=== PATIENT | male | born 1945 | race African-American/Black ===

== ENCOUNTER 2021-11-19 19:41 | Inpatient (IN) | payer MEDICARE ==
[2021-11-19] MEDS ORDERED: NS 0.9% w/ 40 MEQ KCL 1,000 ML IV SCH (21:00)
[2021-11-19 21:03] LABS: Band 11 % (5-11); Hemoglobin 10.7 g/dL (14.0-18.0); Hypochromia SLIGHT = 6-15 cells (100X) (0-5/hpf); Lymphocytes 2 % (21-51); MDiff Complete? YES; Mean Corpuscular HGB CONC 34.3 g/dL (32.0-36.0); Mean Corpuscular Volume 69.8 fL (78.0-98.0); Mean Platelet Volume 5.9 fL (7.4-10.4); Microcytosis SLIGHT = 6-15 cells (100X) (0-5/hpf); Monocytes 28 % (0-10); Neutrophil 59 % (42-75); Platelet Count 40 thou/uL (130-400); Platelet Morphology Comment Appears Decreased; Red Blood Cell (RBC) Count 4.47 mill/uL (4.70-6.10); White Blood Cell (WBC) Count 29.6 thou/uL (4.8-10.8)
[2021-11-19 21:04] LABS: ALT (SGPT) 73 U/L (8-55); AST (SGOT) 178 U/L (5-34); Albumin 2.5 g/dL (3.4-4.8); Alkaline Phosphatase 223 U/L (40-110); Anion Gap 15 mmol/L (10-20); BUN (Urea Nitrogen) 55 mg/dL (8.4-25.7); Bilirubin, Total 2.9 mg/dL (0.2-1.2); Calc. Creatinine Clearance 0 mL/min (70-130); Calcium 6.7 mg/dL (7.8-10.44); Carbon Dioxide 17 mmol/L (23-31); Chloride 92 mmol/L (98-107); Globulin 2.3 g/dL (2.4-3.5); Glucose 66 mg/dL (83-110); Protein, Total 4.8 g/dL (5.8-8.1); Sodium 121 mmol/L (136-145)
[2021-11-19 21:17] LABS: Potassium 2.5 mmol/L (3.5-5.1)
[2021-11-19] MEDS ORDERED: Potassium Chloride 20 MEQ TAB PO SCH ×2 (22:00)
[2021-11-19] MEDS ORDERED: Dextrose 5% in Water 1,000 ML IV SCH (22:00)
[2021-11-19 22:01] LABS: ALT (SGPT) 75 U/L (8-55); AST (SGOT) 182 U/L (5-34); Albumin 2.6 g/dL (3.4-4.8); Alkaline Phosphatase 221 U/L (40-110); Anion Gap 16 mmol/L (10-20); BUN (Urea Nitrogen) 52 mg/dL (8.4-25.7); Band 6 % (5-11); Bilirubin, Total 2.9 mg/dL (0.2-1.2); Calc. Creatinine Clearance 0 mL/min (70-130); Calcium 7.1 mg/dL (7.8-10.44); Carbon Dioxide 16 mmol/L (23-31); Chloride 92 mmol/L (98-107); Globulin 2.8 g/dL (2.4-3.5); Glucose 62 mg/dL (83-110); Hemoglobin 10.9 g/dL (14.0-18.0); Hypochromia SLIGHT = 6-15 cells (100X) (0-5/hpf); Lymphocytes 2 % (21-51); MDiff Complete? YES; Mean Corpuscular HGB CONC 34.5 g/dL (32.0-36.0); Mean Corpuscular Hemoglobin 24.3 pg (27.0-31.0); Mean Corpuscular Volume 70.6 fL (78.0-98.0); Mean Platelet Volume 6.9 fL (7.4-10.4); Monocytes 30 % (0-10); Neutrophil 62 % (42-75); Platelet Count 30 thou/uL (130-400); Platelet Morphology Comment Appears Decreased; Protein, Total 5.4 g/dL (5.8-8.1); RBC Distribution Width 12.9 % (11.5-14.5); Red Blood Cell (RBC) Count 4.49 mill/uL (4.70-6.10); Sodium 121 mmol/L (136-145); White Blood Cell (WBC) Count 30.8 thou/uL (4.8-10.8)
[2021-11-19 22:06] LABS: Potassium 2.5 mmol/L (3.5-5.1)
[2021-11-19] MEDS ORDERED: Acetaminophen 325 MG TAB PO PRN (23:37)
[2021-11-19] MEDS ORDERED: Ondansetron PF 4 MG/2 ML Vial IVP PRN (23:37)
[2021-11-20] MEDS ORDERED: Meropenem 1 GM in Sodium Chloride 0.9% 100 ML IVPB SCH ×2 (00:30→06:45)
[2021-11-20] MEDS ORDERED: Potassium Chloride 20 MEQ TAB ONE (01:16)
[2021-11-20] MEDS ORDERED: Dextrose 5% in Water 1,000 ML IV SCH ×2 (01:20→11:45)
[2021-11-20] MEDS ORDERED: Potassium Chloride 40 MEQ in Sodium Chloride 0.9% 250 ML 250 ML IVPB SCH (02:00)
[2021-11-20] MEDS ORDERED: Potassium Chloride 20 MEQ TAB PO SCH ×3 (02:00→22:00)
[2021-11-20 04:29] LABS: Platelet Count 25 thou/uL (130-400)
[2021-11-20 04:42] LABS: Band 16 % (5-11); Hemoglobin 11.1 g/dL (14.0-18.0); Hypochromia SLIGHT = 6-15 cells (100X) (0-5/hpf); Lymphocytes 3 % (21-51); MDiff Complete? YES; Mean Corpuscular Hemoglobin 23.7 pg (27.0-31.0); Mean Corpuscular Volume 69.6 fL (78.0-98.0); Mean Platelet Volume 14.1 fL (7.4-10.4); Monocytes 17 % (0-10); Neutrophil 64 % (42-75); Platelet Morphology Comment Appears Decreased; RBC Distribution Width 13.1 % (11.5-14.5); Red Blood Cell (RBC) Count 4.68 mill/uL (4.70-6.10); White Blood Cell (WBC) Count 29.4 thou/uL (4.8-10.8)
[2021-11-20 08:19] VITALS: BMI 25.0
[2021-11-20 08:44] LABS: Lactic Acid 1.9 mmol/L (0.5-2.2)
[2021-11-20 10:43] LABS: AST (SGOT) 189 U/L (5-34); Albumin 2.3 g/dL (3.4-4.8); Alkaline Phosphatase 213 U/L (40-110); Anion Gap 18 mmol/L (10-20); BUN (Urea Nitrogen) 49 mg/dL (8.4-25.7); Bilirubin, Total 3.1 mg/dL (0.2-1.2); Calc. Creatinine Clearance 32 mL/min (70-130); Calcium 7.9 mg/dL (7.8-10.44); Carbon Dioxide 11 mmol/L (23-31); Chloride 103 mmol/L (98-107); Globulin 3.2 g/dL (2.4-3.5); Glucose 69 mg/dL (83-110); Potassium 4.2 mmol/L (3.5-5.1); Protein, Total 5.5 g/dL (5.8-8.1); Sodium 128 mmol/L (136-145)
[2021-11-20 12:20] LABS: ALT (SGPT) 94 U/L (8-55)
[2021-11-20] MEDS: Meropenem 1 GM in Sodium Chloride 0.9% 100 ML IVPB SCH (15:20)
[2021-11-20] MEDS: Dextrose 5% in Water 1,000 ML IV SCH (18:04)
[2021-11-20 21:55] LABS: Potassium 2.7 mmol/L (3.5-5.1)
[2021-11-21] MEDS ORDERED: Potassium Chloride 20 MEQ TAB PO SCH ×2 (00:05→10:45)
[2021-11-21] MEDS: Dextrose 5% in Water 1,000 ML IV SCH (02:04)
[2021-11-21] MEDS: Meropenem 1 GM in Sodium Chloride 0.9% 100 ML IVPB SCH ×2 (02:04→13:51)
[2021-11-21 09:24] LABS: ALT (SGPT) 104 U/L (8-55); AST (SGOT) 145 U/L (5-34); Albumin 2.6 g/dL (3.4-4.8); Alkaline Phosphatase 259 U/L (40-110); Anion Gap 11 mmol/L (10-20); BUN (Urea Nitrogen) 36 mg/dL (8.4-25.7); Bilirubin, Total 2.1 mg/dL (0.2-1.2); Calc. Creatinine Clearance 40 mL/min (70-130); Calcium 8.3 mg/dL (7.8-10.44); Carbon Dioxide 21 mmol/L (23-31); Chloride 98 mmol/L (98-107); Globulin 3.4 g/dL (2.4-3.5); Glucose 143 mg/dL (83-110); Magnesium 2.3 mg/dL (1.6-2.6); Potassium 3.4 mmol/L (3.5-5.1); Sodium 127 mmol/L (136-145)
[2021-11-21 10:57] LABS: Band 19 % (5-11); Hemoglobin 12.8 g/dL (14.0-18.0); Lymphocytes 5 % (21-51); MDiff Complete? YES; Mean Corpuscular HGB CONC 33.7 g/dL (32.0-36.0); Mean Corpuscular Hemoglobin 23.7 pg (27.0-31.0); Mean Corpuscular Volume 70.3 fL (78.0-98.0); Mean Platelet Volume 10.2 fL (7.4-10.4); Monocytes 1 % (0-10); Myelocyte 1 % (0-0); Neutrophil 74 % (42-75); Platelet Count 52 thou/uL (130-400); Platelet Morphology Comment Appears Decreased; RBC Distribution Width 13.3 % (11.5-14.5); Red Blood Cell (RBC) Count 5.39 mill/uL (4.70-6.10); White Blood Cell (WBC) Count 18.8 thou/uL (4.8-10.8)
[2021-11-21] MEDS ORDERED: Iopamidol 370 76% 50 ML VIAL FS ONE (11:13)
[2021-11-21] MEDS ORDERED: MEROPENEM 1 GM/50 ML 1 GM in Premix Bag 1 BAG IVPB SCH (14:00)
[2021-11-21 17:28] LABS: Anion Gap 13 mmol/L (10-20); BUN (Urea Nitrogen) 33 mg/dL (8.4-25.7); Calc. Creatinine Clearance 49 mL/min (70-130); Carbon Dioxide 18 mmol/L (23-31); Chloride 97 mmol/L (98-107); Glucose 94 mg/dL (83-110); Potassium 4.1 mmol/L (3.5-5.1); Sodium 124 mmol/L (136-145)
[2021-11-21] MEDS: Tamsulosin HCl 0.4 MG CAP PO SCH (20:47)
[2021-11-22] MEDS: Meropenem 1 GM in Sodium Chloride 0.9% 100 ML IVPB SCH ×2 (02:39→15:08)
[2021-11-22 05:20] LABS: ALT (SGPT) 67 U/L (8-55); AST (SGOT) 67 U/L (5-34); Albumin 2.4 g/dL (3.4-4.8); Alkaline Phosphatase 186 U/L (40-110); Anion Gap 10 mmol/L (10-20); BUN (Urea Nitrogen) 33 mg/dL (8.4-25.7); Bilirubin, Total 1.8 mg/dL (0.2-1.2); Calc. Creatinine Clearance 52 mL/min (70-130); Carbon Dioxide 21 mmol/L (23-31); Chloride 100 mmol/L (98-107); Glucose 84 mg/dL (83-110); Potassium 4.4 mmol/L (3.5-5.1); Protein, Total 5.4 g/dL (5.8-8.1); Sodium 127 mmol/L (136-145)
[2021-11-22 07:47] LABS: Band 11 % (5-11); Eosinophils 1 % (0-10); Hemoglobin 11.7 g/dL (14.0-18.0); Lymphocytes 19 % (21-51); MDiff Complete? YES; Mean Corpuscular HGB CONC 32.6 g/dL (32.0-36.0); Mean Corpuscular Hemoglobin 22.8 pg (27.0-31.0); Mean Corpuscular Volume 70.1 fL (78.0-98.0); Mean Platelet Volume 8.6 fL (7.4-10.4); Monocytes 4 % (0-10); Neutrophil 65 % (42-75); Platelet Count 64 thou/uL (130-400); Platelet Morphology Comment Appears Decreased; RBC Distribution Width 13.3 % (11.5-14.5); Red Blood Cell (RBC) Count 5.14 mill/uL (4.70-6.10); White Blood Cell (WBC) Count 10.4 thou/uL (4.8-10.8)
[2021-11-22] MEDS: Finasteride 5 MG TAB PO SCH (09:28)
[2021-11-22] MEDS: Atorvastatin Calcium 40 MG TAB PO SCH (09:28)
[2021-11-22] MEDS: Tamsulosin HCl 0.4 MG CAP PO SCH (21:56)
[2021-11-23] MEDS: Meropenem 1 GM in Sodium Chloride 0.9% 100 ML IVPB SCH (02:56)
[2021-11-23 05:35] LABS: ALT (SGPT) 61 U/L (8-55); AST (SGOT) 55 U/L (5-34); Albumin 2.4 g/dL (3.4-4.8); Alkaline Phosphatase 148 U/L (40-110); Anion Gap 12 mmol/L (10-20); BUN (Urea Nitrogen) 26 mg/dL (8.4-25.7); Bilirubin, Total 1.9 mg/dL (0.2-1.2); Calc. Creatinine Clearance 60 mL/min (70-130); Carbon Dioxide 20 mmol/L (23-31); Chloride 101 mmol/L (98-107); Glucose 90 mg/dL (83-110); Potassium 4.1 mmol/L (3.5-5.1); Protein, Total 5.4 g/dL (5.8-8.1); Sodium 129 mmol/L (136-145)
[2021-11-23 05:41] LABS: Band 9 % (5-11); Eosinophils 1 % (0-10); Hemoglobin 11.7 g/dL (14.0-18.0); Hypochromia SLIGHT = 6-15 cells (100X) (0-5/hpf); Lymphocytes 2 % (21-51); MDiff Complete? YES; Mean Corpuscular HGB CONC 33.6 g/dL (32.0-36.0); Mean Corpuscular Hemoglobin 23.9 pg (27.0-31.0); Mean Platelet Volume 6.8 fL (7.4-10.4); Metamyelocyte 1 % (0-0); Microcytosis SLIGHT = 6-15 cells (100X) (0-5/hpf); Monocytes 8 % (0-10); Neutrophil 78 % (42-75); Nucleated RBC 1 % (0); Platelet Count 84 thou/uL (130-400); Platelet Morphology Comment Appears Decreased; RBC Distribution Width 13.2 % (11.5-14.5); Reactive Lymphocytes 1 % (0-10); Target Cells SLIGHT = 2-5 cells (100X) (0-1/hpf); White Blood Cell (WBC) Count 9.6 thou/uL (4.8-10.8)
[2021-11-23] MEDS: Atorvastatin Calcium 40 MG TAB PO SCH (09:32)
[2021-11-23] MEDS: Finasteride 5 MG TAB PO SCH (09:32)
[2021-11-23 13:11] VITALS: BP 137/78; TEMP 98.1
== END 2021-11-23 13:12 | disposition home or self-care (01) | DRG 872 ==
LOC: ERS 19:41 → 2NO 22:19
PROVIDERS: ADMIT Internal Medicine; ATTEND Internal Medicine
DX: A41.4 Sepsis due to anaerobes (principal); N13.6 Pyonephrosis; N17.9 Acute kidney failure, unspecified; E87.1 Hypo-osmolality and hyponatremia; N41.0 Acute prostatitis; K56.7 Ileus, unspecified; R65.20 Severe sepsis without septic shock; E78.5 Hyperlipidemia, unspecified; E87.6 Hypokalemia; D69.6 Thrombocytopenia, unspecified; E86.0 Dehydration; N32.0 Bladder-neck obstruction; R74.01 Elevation of levels of liver transaminase levels; K80.20 Calculus of gallbladder without cholecystitis without obstruction; C61 Malignant neoplasm of prostate; N18.30 Chronic kidney disease, stage 3 unspecified; I12.9 Hypertensive chronic kidney disease with stage 1 through stage 4 chronic kidney disease, or unspecified chronic kidney disease; Z28.21 Immunization not carried out because of patient refusal; Z86.73 Personal history of transient ischemic attack (TIA), and cerebral infarction without residual deficits; Z82.49 Family history of ischemic heart disease and other diseases of the circulatory system; Z83.3 Family history of diabetes mellitus; Z80.42 Family history of malignant neoplasm of prostate; Z87.891 Personal history of nicotine dependence; Z79.899 Other long term (current) drug therapy; Z79.82 Long term (current) use of aspirin
CPT/HCPCS: 36415; 36416; 72194; 74176; 76705; 80053; 83605; 83735; 85025; 86850; 86900; 86901; 87086; 93005; J2185; J2597; J3480; J3490; J7050; J7070